=== PATIENT | female | born 1935 | race Caucasian/White ===

== ENCOUNTER 2025-02-26 11:37 | Outpatient (CLI) | payer MEDICARE, OTHER | END 2025-02-26 11:38 | disposition home or self-care (01) | LOC: BICRAD 11:37 | PROVIDERS: ATTEND Family Medicine | DX: M79.605 Pain in left leg (principal); I25.118 Atherosclerotic heart disease of native coronary artery with other forms of angina pectoris; R53.83 Other fatigue | CPT/HCPCS: 36415; 80053; 80061; 84436; 84443; 84480; 85025 ==